=== PATIENT | female | born 1985 | race Caucasian/White ===

== ENCOUNTER 2020-04-14 09:43 | Emergency (ER) | payer MEDICAID ==
[2020-04-14] MEDS ORDERED: Sodium Chloride 0.9% 10 ML Syringe FLUSH PRN (09:59)
[2020-04-14] MEDS ORDERED: diphenhydrAMINE 50 MG/ML SDV IVPUSH ONE (09:59)
[2020-04-14] MEDS ORDERED: Ketorolac 30 MG/ML SDV IVPUSH ONE (09:59)
[2020-04-14] MEDS ORDERED: Prochlorperazine 10 MG/2 ML SDV IV ONE (09:59)
--- NOTE | 2020-04-14 10:08 | EDM.PDOC ---
ED HPI GENERAL MEDICAL PROBLEM - General Chief Complaint: General Stated Complaint: DIZZY;FINGERS TINGLING Time Seen by Provider: 04/14/20 09:54 Source of Information: Reports: Patient History Limitations: Reports: No Limitations - History of Present Illness INITIAL COMMENTS - FREE TEXT/NARRATIVE: Patient comes in the emergency department complaint of headache. Patient states that she has a longstanding history of headaches. She also states that she has had to seek intervention multiple times for her headaches.When she does get severe headache she gets a dizziness and nausea. She states that she is having that again today. She has needed to have fluids in the past to help with her migraines. Patient states that the headaches do progress if she does not get any treatment. Patient describes it as a throbbing sensation and has no modifying factors. Denies any visual changes, balance changes, shortness of breath, lightheadedness, abdominal pain, or peripheral edema. Onset: Gradual Headache Pain Score (Numeric/FACES): 4 - Related Data Allergies Allergy/AdvReac Type Severity Reaction Status Date / Time bee pollen Allergy Anaphylactic Verified 04/14/20 10:55 Shock cat dander Allergy Hives Verified 04/14/20 10:55 codeine Allergy Hives Verified 04/14/20 10:55 menthol Allergy Hives Verified 04/14/20 10:55 mold Allergy Hives Verified 04/14/20 10:55 morphine Allergy Hives Verified 04/14/20 10:55 Penicillins Allergy Hives Verified 04/14/20 10:55 Sulfa (Sulfonamide Allergy Hives Verified 04/14/20 10:55 Antibiotics) Home Meds: Home Meds Propranolol [Inderal LA 24 Hr] 60 mg PO DAILY 04/14/20 [History] ED ROS GENERAL - Review of Systems Review Of Systems: See Below Constitutional: Reports: No Symptoms HEENT: Reports: No Symptoms Respiratory: Reports: No Symptoms Cardiovascular: Reports: No Symptoms Endocrine: Reports: No Symptoms GI/Abdominal: Reports: No Symptoms : Reports: No Symptoms Musculoskeletal: Reports: No Symptoms Skin: Reports: No Symptoms Neurological: Reports: Headache Psychiatric: Reports: No Symptoms Hematologic/Lymphatic: Reports: No Symptoms Immunologic: Reports: No Symptoms ED EXAM, GENERAL - Physical Exam Exam: See Below Exam Limited By: No Limitations General Appearance: Alert, WD/WN, No Apparent Distress Eye Exam: Bilateral Eye: EOMI, PERRL Nose: Normal Inspection, Normal Mucosa Throat/Mouth: Normal Inspection, Normal Lips, Normal Teeth, No Airway Compromise Head: Atraumatic, Normocephalic Neck: Normal Inspection, Supple, Non-Tender Respiratory/Chest: No Respiratory Distress, Lungs Clear, Normal Breath Sounds, No Accessory Muscle Use, Chest Non-Tender Cardiovascular: Normal Peripheral Pulses, Regular Rate, Rhythm, No Edema GI/Abdominal: Normal Bowel Sounds, Soft, Non-Tender Back Exam: Normal Inspection, Full Range of Motion Neurological: Alert, Oriented, CN II-XII Intact, Normal Cognition, Normal Gait, Normal Reflexes, No Motor/Sensory Deficits Psychiatric: Normal Affect, Normal Mood Skin Exam: Warm, Dry, Intact, Normal Color Course - Vital Signs Last Recorded V/S: Last Vital Signs Temp 36.1 C 04/14/20 09:48 Pulse 57 L 04/14/20 09:48 Resp 14 04/14/20 09:48 BP 115/59 L 04/14/20 09:48 Pulse Ox 100 04/14/20 09:48 - Orders/Labs/Meds Meds: Medications Discontinued Medications Generic Name Dose Route Start Last Admin Trade Name Freq PRN Reason Stop Dose Admin Diphenhydramine HCl 50 mg 04/14/20 09:59 04/14/20 10:25 Benadryl IVPUSH 04/14/20 10:00 50 mg ONETIME ONE Administration Sodium Chloride 1,000 mls @ 1,000 mls/hr 04/14/20 10:14 04/14/20 10:23 Normal Saline IV 04/14/20 11:13 1,000 mls/hr ONETIME ONE Administration Ketorolac Tromethamine 30 mg 04/14/20 09:59 04/14/20 10:27 Toradol IVPUSH 04/14/20 10:00 30 mg ONETIME ONE Administration Prochlorperazine Edisylate 10 mg 04/14/20 09:59 04/14/20 10:23 Compazine IV 04/14/20 10:00 10 mg ONETIME ONE Administration Sodium Chloride 10 ml 04/14/20 09:59 Saline Flush FLUSH ASDIRECTED PRN Keep Vein Open Departure - Departure Time of Disposition: 11:30 Disposition: Home, Self-Care 01 Condition: Good Clinical Impression: Migraine Qualifiers: Migraine type: unspecified Status migrainosus presence: without status migrainosus Intractability: not intractable Qualified Code(s): G43.909 - Migraine, unspecified, not intractable, without status migrainosus - Discharge Information *PRESCRIPTION DRUG MONITORING PROGRAM REVIEWED*: Not Applicable *COPY OF PRESCRIPTION DRUG MONITORING REPORT IN PATIENT PRAKASH: Not Applicable Instructions: Migraine Headache Referrals: Tess Sow MD [Primary Care Provider] - Forms: ED Department Discharge Additional Instructions: 1. rest 2. increase your water intake 3. Continue all at home medications 4. Activity and diet as tolerated 5. Can take over the counter Tylenol for any pain or discomfort 6. Follow up with PCP if symptoms continue, return, or progress 7. Call with any questions or concerns - Assessment/Plan Assessment:: 1. migraine Plan: 1. Ice Applied to the the back of the neck 2. IV started in ER 3. Ketorolac 30mg IV given in ER 4. 1 L NS given 5. Benadryl 50mg IV given 6. Compazine 10mg IV given 7. Education regarding splinting, activity, [id number] medications, and follow-up care provided. 8. All questions and concerns addressed with the patient prior to discharge
[2020-04-14] MEDS ORDERED: Sodium Chloride 0.9% 1,000 ML IV ONE (10:14)
== END 2020-04-14 11:32 | disposition home or self-care (01) ==
LOC: VM.ED 09:43
DX: G43.909 Migraine, unspecified, not intractable, without status migrainosus (principal); Z91.030 Bee allergy status; Z91.048 Other nonmedicinal substance allergy status; Z88.5 Allergy status to narcotic agent; Z88.0 Allergy status to penicillin; Z88.2 Allergy status to sulfonamides
CPT/HCPCS: 96374; 96375; 99283; 99283-25; J0780; J1200; J1885; J7030

== ENCOUNTER 2020-12-27 19:50 | Emergency (ER) | payer MEDICAID ==
[2020-12-27] MEDS ORDERED: methylPREDNISolone Sodium Succinate 125 MG/2 ML SDV IVPUSH ONE (20:08)
[2020-12-27] MEDS ORDERED: diphenhydrAMINE 50 MG/ML SDV IVPUSH ONE (20:08)
--- NOTE | 2020-12-27 20:16 | EDM.PDOC ---
ED HPI GENERAL MEDICAL PROBLEM - General Chief Complaint: Allergic Reaction Stated Complaint: ALLERGIC REACTION Time Seen by Provider: 12/27/20 20:00 Source of Information: Reports: Patient History Limitations: Reports: No Limitations - History of Present Illness INITIAL COMMENTS - FREE TEXT/NARRATIVE: Chelsey is a 35 year old female who presents to ER with concerns of a possible allergic reaction to [place] cold medicine. States her face, especially her lips started to feel numb as well as her throat about an hour after she took it. Believes this happened one other time with this medicine and "didn't mean to take it again, grabbed the wrong one". [place] tightness in her chest. No rash. No wheezing. Has been having cold symptoms for several days now. Was in to see [facility] 2 days ago and had a covid test, which was negative. Continues to have sinus congestion and drainage in her throat. Occasional dry cough. Does feel jittery. Has not taken any benadryl Onset: Today Duration: Hour(s):, Constant Location: Reports: Face Associated Symptoms: Reports: Cough, Shortness of Breath. Denies: Chest Pain, Fever/Chills, Loss of Appetite, Nausea/Vomiting Throat Pain Score (Numeric/FACES): 5 - Related Data Allergies Allergy/AdvReac Type Severity Reaction Status Date / Time bee pollen Allergy Anaphylactic Verified 12/27/20 20:05 Shock cat dander Allergy Hives Verified 12/27/20 20:05 codeine Allergy Hives Verified 12/27/20 20:05 menthol Allergy Hives Verified 12/27/20 20:05 mold Allergy Hives Verified 12/27/20 20:05 morphine Allergy Hives Verified 12/27/20 20:05 Penicillins Allergy Hives Verified 12/27/20 20:05 Sulfa (Sulfonamide Allergy Hives Verified 12/27/20 20:05 Antibiotics) Home Meds: Home Meds Propranolol [Inderal LA 24 Hr] 60 mg PO DAILY 04/14/20 [History] Past Medical History HEENT History: Reports: Allergic Rhinitis Respiratory History: Reports: Asthma PCAS History: Reports: Polycystic Ovaries Neurological History: Reports: Migraines, Seizure Social & Family History - Tobacco Use Tobacco Use Status *Q: Never Tobacco User - Recreational Drug Use Recreational Drug Use: No ED ROS ALLERGIC REACTION - Review of Systems Review Of Systems: See Below Constitutional: Reports: Malaise. Denies: Fever, Chills, Weakness, Fatigue, Decreased Appetite HEENT: Reports: Rhinitis, Sinus Problem. Denies: Ear Pain Respiratory: Reports: Shortness of Breath, Cough Cardiovascular: Denies: Chest Pain, Edema, Lightheadedness Endocrine: Reports: No Symptoms GI/Abdominal: Denies: Abdominal Pain, Nausea, Vomiting : Reports: No Symptoms Musculoskeletal: Reports: No Symptoms Skin: Denies: Rash Neurological: Reports: No Symptoms Psychiatric: Reports: Anxiety ED EXAM GENERAL NO PERIP PULSE - Physical Exam Exam: See Below Exam Limited By: No Limitations General Appearance: Alert, WD/WN, No Apparent Distress Ears: Normal External Exam, Normal TMs Nose: Normal Inspection, Nasal Drainage (mucopurulent congestion noted in her nares bilaterally) Throat/Mouth: Normal Inspection, Normal Lips, Normal Oropharynx Head: Normocephalic Neck: Normal Inspection, Supple, Non-Tender Respiratory/Chest: No Respiratory Distress, Lungs Clear, Normal Breath Sounds Cardiovascular: Regular Rate, Rhythm GI/Abdominal: Normal Bowel Sounds, Soft, Non-Tender Extremities: Normal Inspection, No Pedal Edema Skin Exam: Warm, Dry Course - Vital Signs Last Recorded V/S: Last Vital Signs Temp 95.8 F L 12/27/20 20:02 Pulse 64 12/27/20 20:02 Resp 20 12/27/20 20:02 BP 135/83 12/27/20 20:02 Pulse Ox 99 12/27/20 20:02 - Orders/Labs/Meds Meds: Medications Discontinued Medications Generic Name Dose Route Start Last Admin Trade Name Tito PRN Reason Stop Dose Admin Diphenhydramine HCl 25 mg 12/27/20 20:08 Diphenhydramine 50 Mg/Ml Sdv IVPUSH 12/27/20 20:09 ONETIME ONE Methylprednisolone Sodium Succinate 125 mg 12/27/20 20:08 Methylprednisolone Sodium Succinate 125 Mg/2 Ml Sdv IVPUSH 12/27/20 20:09 ONETIME ONE Departure - Departure Time of Disposition: 20:27 Disposition: Home, Self-Care 01 Condition: Good Clinical Impression: Medication adverse effect - Discharge Information *PRESCRIPTION DRUG MONITORING PROGRAM REVIEWED*: No *COPY OF PRESCRIPTION DRUG MONITORING REPORT IN PATIENT PRAKASH: No Additional Instructions: 1. Push fluids 2. Benadryl 50 mg every 6 hours for 3 more doses 3. Stop OTC cold medicine 4. Finish steroids from [facility] 5. Follow up if any concerns. Sepsis Event Note (ED) - Evaluation Sepsis Screening Result: No Definite Risk - Focused Exam Vital Signs: Vital Signs Temp Pulse Resp BP Pulse Ox 12/27/20 20:02 95.8 F L 64 20 135/83 99
== END 2020-12-27 20:45 | disposition home or self-care (01) ==
LOC: VM.ED 19:50
DX: R05.9 Cough, unspecified (principal); T39.015A Adverse effect of aspirin, initial encounter; Z91.030 Bee allergy status; Z88.5 Allergy status to narcotic agent; Z88.0 Allergy status to penicillin; Z88.2 Allergy status to sulfonamides; Z91.09 Other allergy status, other than to drugs and biological substances
CPT/HCPCS: 96374; 99284-25; J1200

== ENCOUNTER 2021-03-04 16:40 | Emergency (ER) | payer MEDICAID ==
[2021-03-04] MEDS: Orphenadrine 60 MG/2 ML Inj IM ONE (17:03)
[2021-03-04] MEDS: Dexamethasone 4 MG/ML SDV IM ONE (17:04)
[2021-03-04] MEDS: Ketorolac 30 MG/ML SDV IM ONE (17:05)
[2021-03-04] MEDS: Dexamethasone 4 MG/ML SDV ONE (17:13)
[2021-03-04] MEDS: Ondansetron 4 MG Tab.DIS PO ONE (17:18)
== END 2021-03-04 18:00 | disposition home or self-care (01) ==
LOC: VM.ED 16:40
DX: M54.42 Lumbago with sciatica, left side (principal); M54.41 Lumbago with sciatica, right side; J45.909 Unspecified asthma, uncomplicated; Z91.030 Bee allergy status; Z91.048 Other nonmedicinal substance allergy status; Z88.8 Allergy status to other drugs, medicaments and biological substances; Z88.5 Allergy status to narcotic agent; Z91.018 Allergy to other foods; Z88.0 Allergy status to penicillin; Z88.2 Allergy status to sulfonamides; Z79.899 Other long term (current) drug therapy
CPT/HCPCS: 96372; 99283; A9270; J1100; J1885; J2360

== ENCOUNTER 2021-12-23 07:22 | Emergency (ER) | payer MEDICAID ==
[2021-12-23 07:59] LABS: CHLORIDE,CL 103 mmol/L (98-107); SODIUM,NA 137 mmol/L (136-145)
[2021-12-23 08:01] LABS: ANION GAP 9.7 mmol/L (5-15); ESTIMATED GFR 85 mL/min (>=60); PTT,PARTIAL THROMBOPLSTIN TIME 25.4 SEC (20.5-30.9)
[2021-12-23] MEDS ORDERED: Ketorolac 30 MG/ML SDV IVPUSH ONE (08:43)
[2021-12-23] MEDS ORDERED: Sodium Chloride 0.9% 1,000 ML IV ONE (09:00)
[2021-12-23] MEDS ORDERED: Ondansetron 4 MG/2 ML SDV IVPUSH ONE (11:01)
== END 2021-12-23 12:22 | disposition home or self-care (01) ==
LOC: VM.ED 07:22
DX: S81.012A Laceration without foreign body, left knee, initial encounter (principal); S80.01XA Contusion of right knee, initial encounter; S80.811A Abrasion, right lower leg, initial encounter; Z91.030 Bee allergy status; Z88.5 Allergy status to narcotic agent; Z88.2 Allergy status to sulfonamides; Z88.0 Allergy status to penicillin; Z88.8 Allergy status to other drugs, medicaments and biological substances; Z79.84 Long term (current) use of oral hypoglycemic drugs; W19.XXXA Unspecified fall, initial encounter
CPT/HCPCS: 36415; 70450; 71045; 72125; 72170; 73030; 73560; 73590; 80053; 81003; 82550; 85025; 85610; 85730; 86140; 96374; 96375; 99284; J1885; J2405; J7030

== ENCOUNTER 2022-02-25 15:28 | Emergency (ER) | payer MEDICAID ==
[2022-02-25 15:41] VITALS: BP 130/76; PULSE 84
[2022-02-25] MEDS: Ketorolac 30 MG/ML SDV IM ONE (16:23)
[2022-02-25 16:31] LABS: ANION GAP 12.2 mmol/L (5-15); CHLORIDE,CL 103 mmol/L (98-107); ESTIMATED GFR 98 mL/min (>=60); SODIUM,NA 140 mmol/L (136-145)
== END 2022-02-25 16:49 | disposition home or self-care (01) ==
LOC: VM.ED 15:28
DX: R10.11 Right upper quadrant pain (principal); R10.31 Right lower quadrant pain; Z88.6 Allergy status to analgesic agent; Z91.030 Bee allergy status; Z88.5 Allergy status to narcotic agent; Z88.0 Allergy status to penicillin; Z88.2 Allergy status to sulfonamides; Z79.899 Other long term (current) drug therapy; Z79.84 Long term (current) use of oral hypoglycemic drugs
CPT/HCPCS: 36415; 80053; 81003; 81025; 82150; 83690; 85025; 86140; 96372; 99284; J1885

== ENCOUNTER 2023-01-31 21:00 | Emergency (ER) | payer MEDICAID ==
[2023-01-31] MEDS ORDERED: Ketorolac 30 MG/ML SDV IM ONE (21:23)
[2023-01-31] MEDS ORDERED: Prochlorperazine 10 MG/2 ML SDV IM ONE (21:24)
[2023-01-31 21:37] LABS: BASOPHILS PERCENT AUTO 0.3 % (0.2-1.2); EOSINOPHILS ABSOLUTE AUTO 0.3 x10^3/uL (0.0-0.5); EOSINOPHILS PERCENT AUTO 2.5 % (0.0-4.0); HEMATOCRIT 40.4 % (33.0-47.0); HEMOGLOBIN 13.3 g/dL (12.0-16.0); IMMATURE GRAN ABSOLUTE AUTO 0.01 x10^3/uL (0.00-0.07); LYMPHOCYTES ABSOLUTE AUTO 2.6 x10^3/uL (1.0-4.8); MEAN CORPUSCULAR HEMOGLOBIN 27.7 pg (26.0-32.0); MEAN CORPUSCULAR HGB CONC 32.9 g/dL (32.0-36.0); MONOCYTES ABSOLUTE AUTO 0.7 x10^3/uL (0.0-0.8); MONOCYTES PERCENT AUTO 6.4 % (2.0-11.0); NEUTROPHILS ABSOLUTE AUTO 6.9 x10^3/uL (1.8-7.7); NEUTROPHILS PERCENT AUTO 65.7 % (50.0-80.0); PLATELET COUNT,PLT 269 x10^3/uL (130-400); RED BLOOD CELL COUNT 4.81 x10^6/uL (4.00-5.50); WHITE BLOOD CELL COUNT,WBC 10.4 x10^3/uL (4.0-10.0)
[2023-01-31 22:01] LABS: A/G RATIO 0.86; ALANINE AMINOTRANSFERASE,ALT 32 U/L (14-59); ALBUMIN 3.7 g/dL (3.4-5.0); ALKALINE PHOSPHATASE 67 U/L (46-116); ANION GAP 13.9 mmol/L (5-15); ASPARTATE AMNIOTRANSFERASE,AST 17 U/L (15-37); BILIRUBIN TOTAL 0.2 mg/dL (0.2-1.0); BLOOD UREA NITROGEN,BUN 13 mg/dL (7-18); CALCIUM 8.8 mg/dL (8.5-10.1); CARBON DIOXIDE,CO2 28 mmol/L (21-32); CHLORIDE,CL 102 mmol/L (98-107); CREATININE 1.1 mg/dL (0.55-1.02); GLUCOSE RANDOM 110 mg/dL (70-99); POTASSIUM,K 3.9 mmol/L (3.5-5.1); SODIUM,NA 140 mmol/L (136-145); TSH ULTRASENSITIVE 2.929 uIU/mL (0.358-3.74)
[2023-01-31 22:02] LABS: ACETAMINOPHEN 0 ug/ml (10-30); ESTIMATED GFR 66 mL/min (>=60); ETHANOL BLOOD MEDICAL < 3 mg/dL (0-3)
[2023-01-31 22:20] LABS: BILIRUBIN,URINE NEGATIVE (NEGATIVE); COLOR,URINE YELLOW (YELLOW); GLUCOSE,URINE NEGATIVE (NEGATIVE); KETONES,URINE NEGATIVE (NEGATIVE); LEUKOCYTE ESTERASE,URINE NEGATIVE (NEGATIVE); NITRITE,URINE NEGATIVE (NEGATIVE); OCCULT BLOOD,URINE NEGATIVE (NEGATIVE); PROTEIN,URINE NEGATIVE (NEGATIVE); UROBILINOGEN,URINE 0.2 EU/dL (0.2)
[2023-01-31 22:23] LABS: APPEARANCE,URINE SLIGHTLY CLOUDY (CLEAR)
[2023-01-31 22:25] LABS: AMPHETAMINES SCREEN, URINE POSITIVE (NEGATIVE)
[2023-01-31 22:26] LABS: BARBITURATE SCREEN,URINE NEGATIVE (NEGATIVE); BENZODIAZEPINES SCREEN,URINE NEGATIVE (NEGATIVE); BUPRENORPHINE SCREEN,URINE NEGATIVE (NEGATIVE); COCAINE METABOLITES,URINE NEGATIVE (NEGATIVE); METHADONE SCREEN, URINE NEGATIVE (NEGATIVE); METHAMPHETAMINE SCREEN, URINE NEGATIVE (NEGATIVE); OXYCODONE SCREEN,URINE NEGATIVE (NEGATIVE); PCP SCREEN,URINE NEGATIVE (NEGATIVE); THC SCREEN,URINE 50 NG/ML NEGATIVE (NEGATIVE)
[2023-02-01] MEDS ORDERED: Acetaminophen 500 MG Tab PO ONE (00:53)
[2023-02-01] MEDS ORDERED: LORazepam 1 MG Tab PO ONE (03:51)
== END 2023-02-01 04:48 ==
LOC: VM.ED 21:00
DX: R45.851 Suicidal ideations (principal); J45.909 Unspecified asthma, uncomplicated; Z79.84 Long term (current) use of oral hypoglycemic drugs; Z79.899 Other long term (current) drug therapy; Z88.6 Allergy status to analgesic agent; Z91.030 Bee allergy status; Z88.5 Allergy status to narcotic agent; Z88.8 Allergy status to other drugs, medicaments and biological substances; Z88.2 Allergy status to sulfonamides; Z88.0 Allergy status to penicillin; Z91.048 Other nonmedicinal substance allergy status
CPT/HCPCS: 36415; 80053; 80143; 80179; 80305-QW; 80307; 81003; 81025; 83735; 84443; 85025; 96372; 99284; 99285; A9270-GY; J0780; J1885